=== PATIENT | male | born 1990 | race Caucasian/White ===

== ENCOUNTER 2022-05-31 08:00 | Outpatient (CLI) | payer MEDICAID ==
[2022-06-01 17:24] LABS: NEISSERIA GONORRHOEAE DNA NEGATIVE (NEGATIVE)
[2022-06-01 17:26] LABS: CHLAMYDIA TRACHOMATIS DNA POSITIVE (NEGATIVE)
[2022-06-02 06:09] LABS: HSV 1 IGG TYPE SPEC <0.91 index (0.00-0.90); HSV 2 IGG TYPE SPEC <0.91 index (0.00-0.90); RPR Non Reactive (Non Reactive)
[2022-06-02 07:10] LABS: HIV SCREEN 4TH GENERATION Non Reactive (Non Reactive)
[2022-06-02 08:10] LABS: HBsAG SCREEN Negative (Negative); HCV AB <0.1 s/co ratio (0.0-0.9)
== END 2022-05-31 23:59 | disposition home or self-care (01) ==
LOC: LAB.N 08:00
PROVIDERS: ATTEND Emergency Medicine
DX: R21 Rash and other nonspecific skin eruption (principal); B37.42 Candidal balanitis
CPT/HCPCS: 36415; 86592; 86695; 86696; 86704; 86803; 87340; 87389; 87491; 87591; 87661

== ENCOUNTER 2023-11-18 13:29 | Emergency (ER) | payer SELFPAY ==
[2023-11-18 13:43] VITALS: BP 117/62; O2SAT 95
== END 2023-11-18 15:01 | disposition left against medical advice (07) ==
LOC: ED 13:29
DX: R42 Dizziness and giddiness (principal); Z53.21 Procedure and treatment not carried out due to patient leaving prior to being seen by health care provider

== ENCOUNTER 2023-11-18 16:26 | Emergency (ER) | payer SELFPAY ==
[2023-11-18 17:10] VITALS: BP 133/80; O2SAT 98
[2023-11-18] MEDS: ONDANSETRON ODT 4 MG TABLET TL STA (18:04)
== END 2023-11-18 17:20 | disposition left against medical advice (07) ==
LOC: ED 16:26
DX: R10.9 Unspecified abdominal pain (principal); R11.2 Nausea with vomiting, unspecified; Z53.21 Procedure and treatment not carried out due to patient leaving prior to being seen by health care provider
CPT/HCPCS: 80053; 83690; 85025